=== PATIENT | female | born 1980 | race Caucasian/White ===

== ENCOUNTER 2017-01-24 10:10 | Emergency (ER) | payer MEDICAID ==
[2017-01-24 10:24] VITALS: BP 145/101; BMI 45.4
[2017-01-24] MEDS ORDERED: ZOFRAN INJ 4 MG VIAL IM ONE (10:51)
--- NOTE | 2017-01-24 10:58 | DR.GENAD ---
HPI - PCP Primary Care Physician: JORDIN - Complaint/Symptoms Chief Complaint Doctors Comments: The patient complains of fullness in nasal area like she is drowning in her secretions with sore throat, nausea and vomiting. States she was vomiting yellow secretions today. states her throat was hurting so badily she tried some spray but it only made her throw up again. States she had episode of diarrhea yesterday but none today. She goes to the clinic. States she had a hysterectomy in 2002 and has a history of seizures but she has not had a seizure in weeks. States she has been having fever, cough , dysuria but denies hematuria. Chief Complaint:: PT C/O N/V/D, SORE THROAT AND HEADACHE. PT STATES SHE HAS BEEN VOMITTING SINCE THIS AM. PT STATES HER THROAT STARTED HURTING YESTERDAY. - Nurses notes reviewed Nurses Notes Review: Yes - Source History Provided: Patient - Mode of Arrival Mode of Arrival: Ambulatory - Timing Onset of Chief Complaint: 01/23/17 Came on: Gradually - Duration Duration: Constant How lon Duration: Days - Location Location: sore throat - Severity Severity: Moderate - Modifying Factors Worsens:: nothing Improves:: nothing PMH - PMH Past Medical History: Yes Past Medical History: Headaches, Seizures Past Surgical History: Yes Surgical History: Cholecystectomy, Hysterectomy, Ortho Surgery, Tonsillectomy - Family History History of Family Medical Conditions: Yes Family Medical History: Hypertension - Social History Does any household member use tobacco: No Alcohol Use: None Do you use any recreational Drugs:: No Lives With: Family Lives Where: Home - infectious screening In the last 2 months have you had wt loss of >10#?: NO Have you had fever, night sweats or hemotysis?: No Have you traveled outside the country in the last 6 months?: No Isolation: Standard ROS - Review of Systems Constitutional: No Symptoms Reported, Chills, Fever. negative: See HPI, Diaphoresis, Malaise, Weakness, Irritable, Fatigue, Loss of Appetite, Other Eyes: No Symptoms Reported ENTM: No Symptoms Reported, Nose Discharge, Nose Congestion, Throat Pain. negative: See HPI, Ear Pain, Ear Discharge, Pulling on Ears, Hearing Loss, Nose Pain, Epistaxis, Mouth Pain, Mouth Swelling, Loose Teeth, Drooling, Throat Swelling, Ear Foreign Body Respiratoy: No Symptoms Reported, Non-Productive Cough. negative: See HPI, Productive Cough, Moist Cough, Dry Cough, Hacking Cough, Barking Cough, Brassy Cough, Orthopnea, Short of Breath, Stridor, Wheezing, Hemoptysis, Other Cardiovascular: No Symptoms Reported. negative: See HPI, Chest Pain, Edema, Palpitations, Syncope, Cyanosis, Skin Mottling, Other Gastrointestinal/Abdominal: No Symptoms Reported, Diarrhea, Nausea, Vomiting. negative: See HPI, Abdominal Pain, Constipation, Food Intolerance, Other Genitourinary: No Symptoms Reported, Frequency. negative: See HPI, Discharge, Dysuria, Hematuria, Pain, Bleeding, Other Neurological: No Symptoms Reported Musculoskeletal: No Symptoms Reported Integumentary: No Symptoms Reported Hematologic/Lymphatic: No Symptoms Reported Endocrine: No Symptoms Reported Psychiatric: No Symptoms Reported PE - Vital Signs Vitals: Temperature 98.9 F Pulse Rate 89 Respiratory Rate 20 Blood Pressure [Right Arm] 101/66 Blood Pressure [Left Arm] 107/65 Blood Pressure 145/101 O2 Sat by Pulse Oximetry 99 - General Limitations: No Limitations General Appearance: Alert, In Distress (mild) - Head Head Exam: Normal Inspection, Atraumatic, Normocephalic - Eyes Eye exam: Normal Appearance, PERRL, EOMI. negative: Scleral Icterus, Conjunctival Injection, Nystagmus, Miosis, Mydrasis, Periorbital Swelling, Periorbital Tenderness, Other - ENT ENT Exam: Normal Exam, Normal Oropharynx, Normal External Ear Exam, Mucous Membranes Moist, TM's Normal Bilaterally External Ear Exam: Normal External Inspection TM/Canal Exam: Bilateral Normal Nose Exam: Normal Nose Exam Mouth Exam: Normal Inspection Throat Exam: Normal Inspection - Neck Neck Exam: Normal Inspection, Full ROM, Trachea Midline. negative: Tenderness, Meningismus, Lymphadenopathy, Thyromegaly, Other - Chest Chest Inspection: Normal Inspection, Symmetric Chest Wall Rise - Respiratory Respiratory Exam: Normal Lung Sounds Bilat Respiratory Exam: Bilateral Clear to Auscultation - Cardiovascular Cardiovascular Exam: Regular Rate, Normal Rhythm, Normal Heart Sounds - Abdominal Exam Abdominal Exam: Normal Inspection, Normal Bowel Sounds, Soft Abdominal Tenderness: negative: RUQ, RLQ, LUQ, LLQ, Epigastrium, Suprapubic, Diffuse, Mild, Moderate, Severe, Other - Extremities Extremities Exam: Normal Inspection, Full ROM, Normal Capillary Refill. negative: Tenderness, Edema, Joint Swelling, Calf Tenderness, Other - Back Back Exam: Normal Inspection, Full ROM - Neurologic Neurological Exam: Alert, Oriented X3, CN II-XII Intact, Reflexes Normal. negative: Normal Gait (gait not tested) - Psychiatric Psychiatric Exam: Normal Affect, Normal Mood - Skin Skin Exam: Warm, Dry, Intact, Normal Color ROR - Labs Reviewed Laboratory Results Reviewed?: Yes (all labs and x-ray results reviewed and discussed with patient) Result Diagrams: 01/24/17 11:00 01/24/17 11:00 Laboratory: WBC 11.3 X10^3/uL (3.6-10.0) H 01/24/17 11:00 RBC 4.34 X10^6/uL (3.5-5.4) 01/24/17 11:00 Hgb 12.7 g/dL (12.0-16.0) 01/24/17 11:00 Hct 38.4 % (36.0-47.0) 01/24/17 11:00 MCV 88.4 fL (80.0-100.0) 01/24/17 11:00 MCH 29.2 pg (27.0-34.0) 01/24/17 11:00 MCHC 33.0 g/dL (33.0-35.0) 01/24/17 11:00 RDW 12.6 % (11.6-16.5) 01/24/17 11:00 Plt Count 221 X10^3/uL (150.0-450.0) 01/24/17 11:00 MPV 9.7 fL (7.4-11.0) 01/24/17 11:00 Neut % 85.1 % (42.0-75.0) H 01/24/17 11:00 Lymph % 8.0 % (21.0-51.0) L 01/24/17 11:00 [place] % 6.6 % (0.0-13.0) 01/24/17 11:00 Eos % 0.2 % (0.9-2.9) L 01/24/17 11:00 Baso % 0.1 % (0.2-1.0) L 01/24/17 11:00 Neut # 9.6 x10^3/uL (2.2-4.8) H 01/24/17 11:00 Lymph # 0.9 X10^3/uL (1.3-2.9) L 01/24/17 11:00 [place] # 0.7 x10^3/uL (0.3-0.8) 01/24/17 11:00 Eos # 0.0 x10^3/uL (0.0-0.2) 01/24/17 11:00 Baso # 0.0 X10^3/uL (0.0-0.1) 01/24/17 11:00 Absolute Nucleated RBC 0.0 /100WBC 01/24/17 11:00 Sodium 142 mmol/L (136-145) 01/24/17 11:00 Corrected Sodium TNP 01/24/17 11:00 Potassium 3.9 mmol/L (3.5-5.1) 01/24/17 11:00 Chloride 106 mmol/L (98-107) 01/24/17 11:00 Carbon Dioxide 24.5 mmol/L (21-32) 01/24/17 11:00 BUN 8 mg/dL (7-18) 01/24/17 11:00 Creatinine 0.91 mg/dL (0.55-1.02) 01/24/17 11:00 Est GFR (MDRD) Af Amer > 60 (>60) 01/24/17 11:00 Est GFR (MDRD) Non-Af > 60 (>60) 01/24/17 11:00 Glucose 101 mg/dL (65-99) H 01/24/17 11:00 Calcium 8.2 mg/dL (8.5-10.1) L 01/24/17 11:00 Corrected Calcium TNP 01/24/17 11:00 Total Bilirubin 0.30 mg/dL (0.2-1.0) 01/24/17 11:00 AST 11 Units/L (15-37) L 01/24/17 11:00 ALT 18 Units/L (12-78) 01/24/17 11:00 Alkaline Phosphatase 151 Units/L (46-116) H 01/24/17 11:00 Total Protein 7.6 g/dL (6.4-8.2) 01/24/17 11:00 Albumin 3.6 g/dL (3.4-5.0) 01/24/17 11:00 Globulin 4.0 g/dL (2.5-4.5) 01/24/17 11:00 Albumin/Globulin Ratio 0.9 Ratio (1.1-2.1) L 01/24/17 11:00 Amylase 26 Units/L (25-115) 01/24/17 11:00 Lipase 117 Units/L (73-393) 01/24/17 11:00 Specimen Type Clean catch urine 01/24/17 11:04 Urine Color Yellow (YELLOW) 01/24/17 11:04 Urine Appearance Clear (CLEAR) 01/24/17 11:04 Urine pH 8.0 (5.0 - 8.0) 01/24/17 11:04 Ur Specific [place] 1.015 (1.000-1.030) 01/24/17 11:04 Urine Protein Negative (NEGATIVE) 01/24/17 11:04 Urine Glucose (UA) Negative (NEGATIVE) 01/24/17 11:04 Urine Ketones Negative (NEGATIVE) 01/24/17 11:04 Urine Occult Blood Negative (NEGATIVE) 01/24/17 11:04 Urine Nitrite Negative (NEGATIVE) 01/24/17 11:04 Urine Bilirubin Negative (NEGATIVE) 01/24/17 11:04 Urine Urobilinogen Normal (NORMAL) 01/24/17 11:04 Ur Leukocyte Esterase Negative (NEGATIVE) 01/24/17 11:04 Urine RBC None seen /HPF (NEGATIVE) 01/24/17 11:04 Urine WBC None seen /HPF (NEGATIVE) 01/24/17 11:04 Ur Squamous Epith Cells Few /HPF (NEGATIVE) 01/24/17 11:04 Amorphous Sediment Trace /HPF (NEGATIVE) 01/24/17 11:04 Urine Bacteria Negative /HPF (NEGATIVE) 01/24/17 11:04 Ur Culture Indicated? No/not indicated 01/24/17 11:04 Streptococcus Screen Negative (NEGATIVE) 01/24/17 10:56 - XRAY XRAY Interpreted by: Radiologist (abdominal series: No acute cardiopulmonary disease; no evidence for acut abdominal pathology identified) - Diagnosis Discharge Problem: Pharyngitis Qualifiers: Pharyngitis/tonsillitis etiology: other specified organisms Qualified Code(s): J02.8 - Acute pharyngitis due to other specified organisms Sinusitis, acute Qualifiers: Sinusitis location: maxillary Vomiting Qualifiers: Vomiting type: unspecified - Discharge Plan Disposition: HOME, SELF-CARE Condition: Stable Prescriptions: Amoxicillin & Pot Clavulanate [AUGMENTIN TAB 875 mg/125 mg *] 1 tab PO BID #20 tab Cetirizine HCl [Zyrtec Tab 10 mg] 10 mg PO DAILY #30 tab Fluticasone Nasal [place] [FLONASE NASAL SPRAY *] 2 sprays ENOSTRIL DAILY #1 each Ibuprofen [Motrin Tab 800 mg] 800 mg PO BID PRN #60 tab PRN Reason: Pain/Inflammation - Follow ups/Referrals Follow ups/Referrals: Ana María Liao [Primary Care Provider] - 3 days - Instructions Instructions: Pharyngitis, Salt Water Gargle, Sinusitis, Adult, Nausea and Vomiting, Adult
[2017-01-24] MEDS ORDERED: ZOFRAN INJ 4 MG VIAL ONE (11:14)
[2017-01-24 11:26] LABS: BASOPHILS % (AUTO) 0.1 % (0.2-1.0); EOSINOPHILS % (AUTO) 0.2 % (0.9-2.9); HEMATOCRIT 38.4 % (36.0-47.0); HEMOGLOBIN 12.7 g/dL (12.0-16.0); LYMPHOCYTES # (AUTO) 0.9 X10^3/uL (1.3-2.9); MEAN CORPUSCULAR HEMOGLOBIN 29.2 pg (27.0-34.0); MEAN CORPUSCULAR VOLUME 88.4 fL (80.0-100.0); MEAN PLATELET VOLUME 9.7 fL (7.4-11.0); MONOCYTES # (AUTO) 0.7 x10^3/uL (0.3-0.8); MONOCYTES % (AUTO) 6.6 % (0.0-13.0); NEUTROPHILS # (AUTO) 9.6 x10^3/uL (2.2-4.8); NEUTROPHILS % (AUTO) 85.1 % (42.0-75.0); PLATELET COUNT 221 X10^3/uL (150.0-450.0); RED BLOOD COUNT 4.34 X10^6/uL (3.5-5.4); RED CELL DISTRIBUTION WIDTH 12.6 % (11.6-16.5); WHITE BLOOD COUNT 11.3 X10^3/uL (3.6-10.0)
[2017-01-24 11:28] LABS: ALANINE AMINOTRANSFERASE 18 Units/L (12-78); ALBUMIN 3.6 g/dL (3.4-5.0); ALKALINE PHOSPHATASE 151 Units/L (46-116); AMYLASE 26 Units/L (25-115); ASPARTATE AMINO TRANSFERASE 11 Units/L (15-37); BLOOD UREA NITROGEN 8 mg/dL (7-18); CALCIUM 8.2 mg/dL (8.5-10.1); CARBON DIOXIDE 24.5 mmol/L (21-32); CHLORIDE 106 mmol/L (98-107); CREATININE 0.91 mg/dL (0.55-1.02); GLUCOSE 101 mg/dL (65-99); LIPASE 117 Units/L (73-393); SODIUM 142 mmol/L (136-145); TOTAL PROTEIN 7.6 g/dL (6.4-8.2); eGFR BLACK RACES > 60 (>60); eGFR NON BLACK RACES > 60 (>60)
[2017-01-24 11:29] LABS: BILIRUBIN,URINE NEGATIVE (NEGATIVE); BLOOD/HEMOGLOBIN,URINE NEGATIVE (NEGATIVE); GLUCOSE, URINE NEGATIVE (NEGATIVE); KETONES,URINE NEGATIVE (NEGATIVE); LEUKOCYTE ESTERASE ,URINE NEGATIVE (NEGATIVE); NITRITES,URINE NEGATIVE (NEGATIVE); PROTEIN,URINE NEGATIVE (NEGATIVE); UROBILINOGEN,URINE NORMAL (NORMAL)
[2017-01-24 11:36] LABS: AMORPHOUS SEDIMENT,UR TRACE /HPF (NEGATIVE); APPEARANCE,URINE CLEAR (CLEAR); BACTERIA,URINE NEGATIVE /HPF (NEGATIVE); COLOR,URINE YELLOW (YELLOW); RBC,URINE NONE SEEN /HPF (NEGATIVE); SQUAMOUS EPITHELIAL CELL,UR FEW /HPF (NEGATIVE)
--- NOTE | 2017-01-24 12:05 | RAD ---
HISTORY: Nausea and vomiting and diarrhea abdominal pain for 1 day Study: Acute abdominal series Comparison: April 2014 Findings: The trachea is midline. The cardiac silhouette is unremarkable. The lungs are clear without focal infiltrate or effusion. The bony thorax is unremarkable. Flat plate and upright evaluation of the abdomen demonstrates a normal bowel gas pattern. No pathol ogical soft tissue mass or calcification can be observed. The bony structures are grossly intact. T here are cholecystectomy clips. IMPRESSION: 1. No acute cardiopulmonary disease. 2. No evidence for acute abdominal pathology identified. Reported By:
[2017-01-24] MEDS ORDERED: ROCEPHIN VIAL 1 GM IM ONE (12:19)
[2017-01-24] MEDS ORDERED: TYLENOL #3 TAB (W/CODEINE) PO STA (12:19)
[2017-01-24] MEDS ORDERED: BENADRYL INJ 50 MG VIAL IM ONE (12:19)
[2017-01-24] MEDS ORDERED: ROCEPHIN VIAL 1 GM ONE (12:23)
[2017-01-24] MEDS ORDERED: TYLENOL #3 TAB (W/CODEINE) PO ONE (12:23)
[2017-01-24] MEDS ORDERED: BENADRYL INJ 50 MG VIAL ONE (12:23)
== END 2017-01-24 12:31 | disposition home or self-care (01) ==
LOC: ER 10:31
DX: J02.8 Acute pharyngitis due to other specified organisms (principal); J01.80 Other acute sinusitis; R11.10 Vomiting, unspecified
CPT/HCPCS: 36415; 74022; 80053; 81001; 82150; 83690; 85025; 87070; 87880; 96372; 99283; J0696; J1200; J2405

== ENCOUNTER 2017-04-05 23:36 | Emergency (ER) | payer MEDICAID ==
[2017-04-05 23:51] VITALS: BP 111/84; BMI 42.7
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
[2017-04-06] MEDS ORDERED: TUSSIONEX PENNKINETIC SUSP PO ONE (00:10)
[2017-04-06] MEDS ORDERED: TUSSIONEX PENNKINETIC SUSP ONE (00:17)
--- NOTE | 2017-04-06 01:14 | RAD ---
EXAM: Chest X-ray INDICATION: Chest pain COMPARISION: Prior exam from January 24, 2017 TECHNIQUE: AP, single view FINDINGS: The lungs are clear in the lung volumes are within normal limits. No pleural effusion or pneumothora x. The cardiac silhouette and mediastinum are normal. The regional skeleton is intact. IMPRESSION: Normal Chest X-Ray Reported By:
[2017-04-06] MEDS ORDERED: AMOXIL CAP 500 MG PO ONE (01:29)
== END 2017-04-06 01:49 | disposition home or self-care (01) ==
LOC: ER 23:36
DX: J20.9 Acute bronchitis, unspecified (principal); R07.89 Other chest pain
CPT/HCPCS: 71010; 99282; 99283

== ENCOUNTER → 2017-04-10 | Outpatient (CLI) | payer MEDICAID ==
[2017-04-05 23:51] VITALS: BP 111/84
--- NOTE | 2017-04-10 14:53 | US ---
HISTORY: Thyroid nodule. Study: Thyroid ultrasound. Comparison: MR cervical spine dated December 18, 2016. Technique: Multiple sanchez scale images of the thyroid were obtained. Findings: The thyroid lobes demonstrate heterogeneous echotexture with multiple thyroid nodules. 6 x 4 x 6 mm right mid thyroid lobe nodule without internal color flow or suspicious microcalcifications. Predomi nantly cystic 1.3 x 0.9 x 1.3 cm left inferior thyroid lobe nodule. Adjacent to this nodule there is a 6 x 4 x 7 mm nodule. These do not demonstrate internal color flow or suspicious microcalcificatio ns. The right lobe of the thyroid measures 4.3 x 2.0 x 2.4 cm. The left lobe of the thyroid measures 4.8 x 2.0 x 2.4 cm. The thyroid isthmus enlarged to 3.4 mm and demonstrates heterogeneous echotext ure. IMPRESSION: Multinodular goiter as above. None of these meet criteria for fine needle aspiration. Reji martin, recommend followup ultrasound in 12 months to document stability. Reported By:
== END ==
LOC: RAD 10:19
PROVIDERS: ATTEND Nurse Practitioner Family
DX: E04.1 Nontoxic single thyroid nodule (principal)
CPT/HCPCS: 76536

== ENCOUNTER → 2017-04-15 | Outpatient (CLI) | payer MEDICAID ==
[2017-04-05 23:51] VITALS: BP 111/84
[2017-04-15 17:10] LABS: BASOPHILS % (AUTO) 0.6 % (0.2-1.0); EOSINOPHILS # (AUTO) 0.1 x10^3/uL (0.0-0.2); EOSINOPHILS % (AUTO) 1.3 % (0.9-2.9); HEMATOCRIT 39.5 % (36.0-47.0); HEMOGLOBIN 13.2 g/dL (12.0-16.0); LYMPHOCYTES % (AUTO) 27.3 % (21.0-51.0); MEAN CORPUSCULAR HEMOGLOBIN 29.4 pg (27.0-34.0); MEAN CORPUSCULAR HGB CONC 33.3 g/dL (33.0-35.0); MEAN CORPUSCULAR VOLUME 88.1 fL (80.0-100.0); MEAN PLATELET VOLUME 10.1 fL (7.4-11.0); MONOCYTES # (AUTO) 0.6 x10^3/uL (0.3-0.8); MONOCYTES % (AUTO) 8.9 % (0.0-13.0); NEUTROPHILS # (AUTO) 4.4 x10^3/uL (2.2-4.8); NEUTROPHILS % (AUTO) 61.9 % (42.0-75.0); PLATELET COUNT 259 X10^3/uL (150.0-450.0); RED BLOOD COUNT 4.48 X10^6/uL (3.5-5.4); WHITE BLOOD COUNT 7.2 X10^3/uL (3.6-10.0)
[2017-04-15 17:25] LABS: ALANINE AMINOTRANSFERASE 34 Units/L (12-78); ALBUMIN 3.6 g/dL (3.4-5.0); ALKALINE PHOSPHATASE 161 Units/L (46-116); ASPARTATE AMINO TRANSFERASE 31 Units/L (15-37); BLOOD UREA NITROGEN 14 mg/dL (7-18); CALCIUM 8.8 mg/dL (8.5-10.1); CARBON DIOXIDE 22.4 mmol/L (21-32); CHLORIDE 111 mmol/L (98-107); CREATININE 0.79 mg/dL (0.55-1.02); GLUCOSE 91 mg/dL (65-99); SODIUM 145 mmol/L (136-145); T4 (THYROXINE) 7.2 ug/dL (4.7-13.3); TOTAL PROTEIN 7.9 g/dL (6.4-8.2); TSH (3RD GENERATION) 1.565 uIU/mL (0.358-3.74); eGFR BLACK RACES > 60 (>60); eGFR NON BLACK RACES > 60 (>60)
== END ==
LOC: LAB 16:19
PROVIDERS: ATTEND Nurse Practitioner Family
DX: R53.83 Other fatigue (principal); E04.1 Nontoxic single thyroid nodule; R05 Cough
CPT/HCPCS: 36415; 80053; 84436; 84443; 84481; 85025

== ENCOUNTER 2017-04-16 19:41 | Emergency (ER) | payer MEDICAID ==
[2017-04-16 19:47] VITALS: BP 135/93; BMI 45.7
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
[2017-04-16] MEDS ORDERED: DEMEROL INJ IM ONE (21:58)
[2017-04-16] MEDS ORDERED: ZOFRAN INJ 4 MG VIAL IM ONE (21:58)
[2017-04-16] MEDS ORDERED: DEMEROL INJ ONE (22:05)
[2017-04-16] MEDS ORDERED: ZOFRAN INJ 4 MG VIAL ONE (22:05)
== END 2017-04-16 22:27 | disposition home or self-care (01) ==
LOC: ER 19:58
DX: S16.1XXA Strain of muscle, fascia and tendon at neck level, initial encounter (principal); S09.90XA Unspecified injury of head, initial encounter; S00.83XA Contusion of other part of head, initial encounter; S20.212A Contusion of left front wall of thorax, initial encounter; S00.03XA Contusion of scalp, initial encounter; M79.89 Other specified soft tissue disorders; R51 Headache; Y04.0XXA Assault by unarmed brawl or fight, initial encounter; Y92.148 Other place in prison as the place of occurrence of the external cause
CPT/HCPCS: 70150; 70450; 71020; 72050; 96372; 99283; J2175; J2405

== ENCOUNTER → 2017-04-23 | Outpatient (CLI) | payer MEDICAID ==
[2017-04-05 23:51] VITALS: BP 111/84
--- NOTE | 2017-04-23 15:29 | MRI ---
HISTORY: Low back pain. Study: MRI lumbar spine without contrast. Comparison: Lumbar spine series dated September 11, 2016. Technique: Multiplanar multi-sequence MRI of the lumbar spine was obtained. Sagittal T1, sagittal T 2, and stir weighted images, axial T1, and axial T2 images were obtained. Findings: The lumbar spine demonstrates normal alignment with the expected signal characteristics of the bone marrow. No acute fracture or listhesis. The conus of the cord terminates normally. Disc desiccation at L5-S1 with associated mild disc height loss. Visualized soft tissues appear normal. L1 -- L2: No significant disc bulge, neural foraminal narrowing, or spinal canal stenosis. L2 -- L3: No significant disc bulge, neural foraminal narrowing, or spinal canal stenosis. L3 -- L4: No significant disc bulge, neural foraminal narrowing, or spinal canal stenosis. L4 -- L5: No significant disc bulge, neural foraminal narrowing, or spinal canal stenosis. L5 -- S1: Broad-based disc bulge that extends into the lateral recesses causing mild bilateral neura l foraminal narrowing. No significant spinal canal stenosis. IMPRESSION: Broad-based disc bulge at L5-S1 causing mild bilateral neural foraminal narrowing. No si gnificant spinal canal stenosis. Reported By:
== END ==
LOC: RAD 14:21
PROVIDERS: ATTEND Nurse Practitioner Family
DX: G40.802 Other epilepsy, not intractable, without status epilepticus (principal); M51.27 Other intervertebral disc displacement, lumbosacral region
CPT/HCPCS: 72148; 95819

== ENCOUNTER 2017-06-02 22:24 | Emergency (ER) | payer MEDICAID ==
[2017-06-02 22:30] VITALS: BP 133/96; BMI 45.7
--- NOTE | 2017-06-02 23:20 | DR.GENAD ---
HPI - PCP Primary Care Physician: [facility] - Complaint/Symptoms Chief Complaint:: "BOTH OF MY LEGS HURT FROM KNEES DOWN, STARTED YESTERDAY GOT WORSE TODAY WHEN I WAS CLEANING. THEY FEEL LIKE THEY ARE GOING TO EXPLODE. THEY ARE SWELLING TOO." Self Treatment fo Chief Complaint: TYLENOL 3 - Source History Provided: Patient - Mode of Arrival Mode of Arrival: Ambulatory - Timing Onset of Chief Complaint: 06/01/17 PMH - PMH Past Medical History: Yes Past Medical History: Headaches, Seizures Past Surgical History: Yes Surgical History: Cholecystectomy, Hysterectomy, Ortho Surgery, Tonsillectomy - Family History History of Family Medical Conditions: Yes Family Medical History: Hypertension - Social History Does patient currently use any type of tobacco product: No Have you used tobacco products in the last 12 months: No Type of Tobacco Use: None Does any household member use tobacco: No Alcohol Use: None Do you use any recreational Drugs:: No Lives Where: Home - infectious screening Have you traveled outside the country in the last 6 months?: No Isolation: Standard ROS - Review of Systems Constitutional: Diaphoresis ENTM: No Symptoms Reported Respiratoy: No Symptoms Reported Cardiovascular: No Symptoms Reported Gastrointestinal/Abdominal: No Symptoms Reported Genitourinary: No Symptoms Reported Neurological: No Symptoms Reported Musculoskeletal: No Symptoms Reported Integumentary: No Symptoms Reported Hematologic/Lymphatic: No Symptoms Reported Endocrine: No Symptoms Reported Psychiatric: No Symptoms Reported All Other Systems: Reviewed and Negative PE - Vital Signs Vitals: Temperature 97.6 F Pulse Rate 80 Respiratory Rate 18 Blood Pressure [Right Arm] 101/66 Blood Pressure [Left Arm] 107/65 Blood Pressure 133/96 O2 Sat by Pulse Oximetry 96 - General Limitations: No Limitations General Appearance: Alert - Head Head Exam: Normal Inspection, Atraumatic - Eyes Eye exam: Normal Appearance, PERRL, EOMI - ENT ENT Exam: Normal Exam External Ear Exam: Normal External Inspection TM/Canal Exam: Bilateral Normal Nose Exam: Normal Nose Exam Mouth Exam: Normal Inspection Throat Exam: Normal Inspection - Neck Neck Exam: Normal Inspection, Full ROM - Chest Chest Inspection: Normal Inspection - Respiratory Respiratory Exam: Normal Lung Sounds Bilat Respiratory Exam: Bilateral Clear to Auscultation - Cardiovascular Cardiovascular Exam: Regular Rate, Normal Rhythm - Abdominal Exam Abdominal Exam: Normal Inspection, Normal Bowel Sounds Abdominal Tenderness: negative: RUQ, RLQ, LUQ, LLQ, Epigastrium, Suprapubic, Diffuse, Mild, Moderate, Severe, Other - Extremities Extremities Exam: Normal Inspection, Tenderness (bilateral leg pain (lower)) - Back Back Exam: Normal Inspection - Neurologic Neurological Exam: Alert, Oriented X3, CN II-XII Intact - Psychiatric Psychiatric Exam: Normal Affect - Skin Skin Exam: Warm, Dry, Intact Course - Reevaluation 1st: Unchanged ROR - Labs Reviewed Result Diagrams: 06/02/17 23:18 06/02/17 23:18 Laboratory: WBC 6.5 X10^3/uL (3.6-10.0) 06/02/17 23:18 RBC 4.17 X10^6/uL (3.5-5.4) 06/02/17 23:18 Hgb 12.5 g/dL (12.0-16.0) 06/02/17 23:18 Hct 37.2 % (36.0-47.0) 06/02/17 23:18 MCV 89.2 fL (80.0-100.0) 06/02/17 23:18 MCH 29.9 pg (27.0-34.0) 06/02/17 23:18 MCHC 33.5 g/dL (33.0-35.0) 06/02/17 23:18 RDW 12.9 % (11.6-16.5) 06/02/17 23:18 Plt Count 223 X10^3/uL (150.0-450.0) 06/02/17 23:18 MPV 10.4 fL (7.4-11.0) 06/02/17 23:18 Neut % 63.6 % (42.0-75.0) 06/02/17 23:18 Lymph % 27.4 % (21.0-51.0) 06/02/17 23:18 [place] % 8.2 % (0.0-13.0) 06/02/17 23:18 Eos % 0.3 % (0.9-2.9) L 06/02/17 23:18 Baso % 0.5 % (0.2-1.0) 06/02/17 23:18 Neut # 4.2 x10^3/uL (2.2-4.8) 06/02/17 23:18 Lymph # 1.8 X10^3/uL (1.3-2.9) 06/02/17 23:18 [place] # 0.5 x10^3/uL (0.3-0.8) 06/02/17 23:18 Eos # 0.0 x10^3/uL (0.0-0.2) 06/02/17 23:18 Baso # 0.0 X10^3/uL (0.0-0.1) 06/02/17 23:18 Absolute Nucleated RBC 0.1 /100WBC 06/02/17 23:18 Sodium 141 mmol/L (136-145) 06/02/17 23:18 Corrected Sodium TNP 06/02/17 23:18 Potassium 3.7 mmol/L (3.5-5.1) 06/02/17 23:18 Chloride 107 mmol/L (98-107) 06/02/17 23:18 Carbon Dioxide 24.8 mmol/L (21-32) 06/02/17 23:18 BUN 11 mg/dL (7-18) 06/02/17 23:18 Creatinine 0.94 mg/dL (0.55-1.02) 06/02/17 23:18 Est GFR (MDRD) Af Amer > 60 (>60) 06/02/17 23:18 Est GFR (MDRD) Non-Af > 60 (>60) 06/02/17 23:18 Glucose 83 mg/dL (65-99) 06/02/17 23:18 Calcium 8.2 mg/dL (8.5-10.1) L 06/02/17 23:18 - Diagnosis Discharge Problem: Leg pain, anterior Qualifiers: Laterality: left Qualified Code(s): M79.605 - Pain in left leg - Discharge Plan Condition: Stable - Follow ups/Referrals Follow ups/Referrals: NFD,None [Primary Care Provider] - 3 days - Instructions
[2017-06-02 23:46] LABS: BASOPHILS % (AUTO) 0.5 % (0.2-1.0); EOSINOPHILS % (AUTO) 0.3 % (0.9-2.9); HEMATOCRIT 37.2 % (36.0-47.0); HEMOGLOBIN 12.5 g/dL (12.0-16.0); LYMPHOCYTES # (AUTO) 1.8 X10^3/uL (1.3-2.9); LYMPHOCYTES % (AUTO) 27.4 % (21.0-51.0); MEAN CORPUSCULAR HEMOGLOBIN 29.9 pg (27.0-34.0); MEAN CORPUSCULAR HGB CONC 33.5 g/dL (33.0-35.0); MEAN CORPUSCULAR VOLUME 89.2 fL (80.0-100.0); MEAN PLATELET VOLUME 10.4 fL (7.4-11.0); MONOCYTES # (AUTO) 0.5 x10^3/uL (0.3-0.8); MONOCYTES % (AUTO) 8.2 % (0.0-13.0); NEUTROPHILS # (AUTO) 4.2 x10^3/uL (2.2-4.8); NEUTROPHILS % (AUTO) 63.6 % (42.0-75.0); PLATELET COUNT 223 X10^3/uL (150.0-450.0); RED BLOOD COUNT 4.17 X10^6/uL (3.5-5.4); RED CELL DISTRIBUTION WIDTH 12.9 % (11.6-16.5); WHITE BLOOD COUNT 6.5 X10^3/uL (3.6-10.0)
[2017-06-02 23:50] LABS: BLOOD UREA NITROGEN 11 mg/dL (7-18); CALCIUM 8.2 mg/dL (8.5-10.1); CARBON DIOXIDE 24.8 mmol/L (21-32); CHLORIDE 107 mmol/L (98-107); CREATININE 0.94 mg/dL (0.55-1.02); GLUCOSE 83 mg/dL (65-99); SODIUM 141 mmol/L (136-145); eGFR BLACK RACES > 60 (>60); eGFR NON BLACK RACES > 60 (>60)
== END 2017-06-03 00:55 | disposition home or self-care (01) ==
LOC: ER 22:37
DX: M79.605 Pain in left leg (principal)
CPT/HCPCS: 36415; 80048; 85025; 99282

== ENCOUNTER → 2017-08-06 | Outpatient (CLI) | payer MEDICAID ==
[2017-08-06 15:35] LABS: BASOPHILS % (AUTO) 0.7 % (0.2-1.0); EOSINOPHILS % (AUTO) 0.3 % (0.9-2.9); HEMATOCRIT 40.2 % (36.0-47.0); HEMOGLOBIN 13.5 g/dL (12.0-16.0); LYMPHOCYTES # (AUTO) 1.6 X10^3/uL (1.3-2.9); LYMPHOCYTES % (AUTO) 32.4 % (21.0-51.0); MEAN CORPUSCULAR HEMOGLOBIN 29.2 pg (27.0-34.0); MEAN CORPUSCULAR HGB CONC 33.6 g/dL (33.0-35.0); MEAN CORPUSCULAR VOLUME 86.9 fL (80.0-100.0); MEAN PLATELET VOLUME 10.2 fL (7.4-11.0); MONOCYTES # (AUTO) 0.4 x10^3/uL (0.3-0.8); NEUTROPHILS # (AUTO) 2.9 x10^3/uL (2.2-4.8); NEUTROPHILS % (AUTO) 58.6 % (42.0-75.0); PLATELET COUNT 232 X10^3/uL (150.0-450.0); RED BLOOD COUNT 4.62 X10^6/uL (3.5-5.4); RED CELL DISTRIBUTION WIDTH 13.3 % (11.6-16.5); WHITE BLOOD COUNT 4.9 X10^3/uL (3.6-10.0)
[2017-08-06 15:56] LABS: CHOL/HDL RATIO 2.9 (0.0-5.0); TSH (3RD GENERATION) 0.886 uIU/mL (0.358-3.74)
== END ==
LOC: LAB 15:08
PROVIDERS: ATTEND Nurse Practitioner Family
DX: E04.1 Nontoxic single thyroid nodule (principal); E78.4 Other hyperlipidemia; G40.909 Epilepsy, unspecified, not intractable, without status epilepticus
CPT/HCPCS: 36415; 80061; 84443; 85025

== ENCOUNTER 2017-08-09 07:15 | Emergency (ER) | payer MEDICAID ==
[2017-08-09 07:18] VITALS: BP 125/93; BMI 46.0
[2017-08-09] MEDS ORDERED: DEMEROL INJ IM ONE (07:45)
[2017-08-09] MEDS ORDERED: DECADRON INJ IM ONE (07:46)
[2017-08-09] MEDS ORDERED: PHENERGAN INJ 25 MG IM ONE (07:46)
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
[2017-08-09] MEDS ORDERED: DEMEROL INJ ONE (08:13)
[2017-08-09] MEDS ORDERED: DECADRON INJ ONE (08:13)
[2017-08-09] MEDS ORDERED: PHENERGAN INJ 25 MG ONE (08:13)
--- NOTE | 2017-08-09 08:31 | RAD ---
HISTORY: Right arm pain. Study: Right humerus two views Comparison: None. Findings: No acute cortical disruption or dislocation can be identified. The humeral head appears unremarkable . No significant soft tissue swelling or injury can be seen. IMPRESSION: 1. Negative exam. Reported By:
--- NOTE | 2017-08-09 08:32 | RAD ---
HISTORY: In right arm pain. Study: Right forearm two views Comparison: January 29, 2012. Findings: No evidence for acute cortical disruption or dislocation can be identified. No significant soft tissu e abnormalities appreciated. The carpal bones appear well aligned. The radius and ulna are unremarka ble. The elbow is normal in appearance. No significant joint effusion is identified. IMPRESSION: 1. Negative exam. Reported By:
--- NOTE | 2017-08-09 14:51 | RAD ---
HISTORY: Elbow pain, no trauma Study: Three views right elbow Comparison: 09/01/2011 Findings: Normal alignment. No acute fracture or dislocation. The soft tissues are unremarkable. There are mil d degenerative changes at the elbow joint. No joint effusion is seen. IMPRESSION: 1. No acute osseous abnormality. Reported By:
== END 2017-08-09 08:51 | disposition home or self-care (01) ==
LOC: SUPCPDRO 07:15 → ER 07:22
DX: M77.9 Enthesopathy, unspecified (principal); M79.601 Pain in right arm; M25.521 Pain in right elbow
CPT/HCPCS: 73060; 73070; 73090; 96372; 99282; 99283; J1100; J2175; J2550

== ENCOUNTER 2017-09-24 02:15 | Emergency (ER) | payer MEDICAID ==
[2017-09-24 02:28] VITALS: BMI 47.7
--- NOTE | 2017-09-24 02:41 | DR.GENAD ---
HPI - HPI Comment HPI Comment: PATIENT IS MORE ALERT NOW AND BELIEVE SHE HAD SEIZURE. THE MUSCLE DISCOMFORT SHE EXPERIENCE AFTER SEIZURE IS FELT CURRENTLY.NO FEVER. NO CHEST PAIN. - Complaint/Symptoms Chief Complaint Doctors Comments: PATIENT SAID SHE HAD SEIZURE. FAMILY CALLED EMS. CONCERN SHE MAY HAVE TAKING HER MORE OF HER MEDICATION. Chief Complaint:: PT STATES THAT HER FAMILY CALLED 911 BECAUSE "THEY THOUGHT I TOOK TOO MUCH MEDICINE" PT STATES THAT SHE DID NOT TAKE TOO MUCH MEDICINE BUT THINKS SHE MAY HAVE HAD A SEIZURE TONIGHT. Self Treatment fo Chief Complaint: PT IS A&O X4. IS HAVING SLURRED SPEECH AND HER EYES ARE TRYING TO ROLL BACK IN HER HEAD. PERRLA BUT SLUGGISH. - Nurses notes reviewed Nurses Notes Review: Yes - Source History Provided: Patient - Mode of Arrival Mode of Arrival: Stretcher - Timing Onset of Chief Complaint: 09/24/17 Came on: Suddenly - Duration Duration: Since Onset Duration: Minutes - Severity Severity: Moderate PMH - PMH Past Medical History: Yes Past Medical History: GERD, Headaches, Seizures Past Surgical History: Yes Surgical History: Cholecystectomy, Hysterectomy, Ortho Surgery, Tonsillectomy - Family History History of Family Medical Conditions: Yes Family Medical History: Diabetes Mellitus, Hypertension - Social History Do you use any recreational Drugs:: No - infectious screening Have you traveled outside the country in the last 6 months?: No ROS - Review of Systems Constitutional: No Symptoms Reported, Weakness, Fatigue. negative: Chills, Fever Eyes: negative: Eye Pain, Discharge ENTM: negative: Ear Pain, Nose Discharge, Nose Congestion, Throat Pain Respiratoy: Short of Breath (ON EXERTION). negative: Wheezing, Hemoptysis Cardiovascular: Edema (TRACE). negative: Chest Pain Gastrointestinal/Abdominal: negative: Abdominal Pain, Nausea, Vomiting Genitourinary: negative: Dysuria, Frequency, Hematuria Neurological: Headache, Weakness, Dizziness Musculoskeletal: Muscle Pain Integumentary: No Symptoms Reported, See HPI, Change in Color Hematologic/Lymphatic: No Symptoms Reported Endocrine: No Symptoms Reported All Other Systems: Reviewed and Negative PE - Vital Signs Vitals: Temperature 98.8 F Pulse Rate [Right Radial] 90 Pulse Rate 97 Respiratory Rate 18 Blood Pressure [Right Arm] 140/72 Blood Pressure [Left Arm] 107/65 Blood Pressure 139/69 O2 Sat by Pulse Oximetry 100 - General Limitations: No Limitations General Appearance: Alert - Head Head Exam: Normal Inspection - Eyes Eye exam: Normal Appearance - ENT ENT Exam: Normal External Ear Exam External Ear Exam: Normal External Inspection TM/Canal Exam: Bilateral Normal Nose Exam: Normal Nose Exam Mouth Exam: Normal Inspection Throat Exam: Normal Inspection - Neck Neck Exam: Trachea Midline - Chest Chest Inspection: Symmetric Chest Wall Rise - Respiratory Respiratory Exam: Normal Lung Sounds Bilat Respiratory Exam: Bilateral Rhonchi, Upper Rhonchi, Lower Rhonchi - Cardiovascular Cardiovascular Exam: Regular Rate, Normal Rhythm - Abdominal Exam Abdominal Exam: Normal Bowel Sounds, Soft. negative: Tenderness - Extremities Extremities Exam: Edema - Back Back Exam: Normal Inspection - Neurologic Neurological Exam: Alert, Oriented X3 - Psychiatric Psychiatric Exam: Normal Affect, Normal Mood - Skin Skin Exam: Normal Color MDM - Additional Information Additional Information Obtained From: Family - Differential Diagnosis Differential Diagnosis: SEIZURE Course - Treatment Treatment: PATIENT GRADUALLY BECAME MORE ALERT IN ED.FULLY ALERT AT TIME OF DISCHARGE. - Reevaluation 1st: Improved - Education/Counseling Education/Counseling: Patient, Family, Education, Counseling Educated On: Treatment, Diagnosis, Needs for Follow Up ROR - Labs Reviewed Laboratory Results Reviewed?: Yes Result Diagrams: 09/24/17 02:48 09/24/17 02:48 Laboratory: WBC 7.4 X10^3/uL (3.6-10.0) 09/24/17 02:48 RBC 4.60 X10^6/uL (3.5-5.4) 09/24/17 02:48 Hgb 13.6 g/dL (12.0-16.0) 09/24/17 02:48 Hct 41.0 % (36.0-47.0) 09/24/17 02:48 MCV 89.0 fL (80.0-100.0) 09/24/17 02:48 MCH 29.6 pg (27.0-34.0) 09/24/17 02:48 MCHC 33.3 g/dL (33.0-35.0) 09/24/17 02:48 RDW 13.4 % (11.6-16.5) 09/24/17 02:48 Plt Count 227 X10^3/uL (150.0-450.0) 09/24/17 02:48 MPV 10.5 fL (7.4-11.0) 09/24/17 02:48 Neut % 70.0 % (42.0-75.0) 09/24/17 02:48 Lymph % 21.7 % (21.0-51.0) 09/24/17 02:48 [place] % 7.5 % (0.0-13.0) 09/24/17 02:48 Eos % 0.3 % (0.9-2.9) L 09/24/17 02:48 Baso % 0.5 % (0.2-1.0) 09/24/17 02:48 Neut # 5.2 x10^3/uL (2.2-4.8) H 09/24/17 02:48 Lymph # 1.6 X10^3/uL (1.3-2.9) 09/24/17 02:48 [place] # 0.6 x10^3/uL (0.3-0.8) 09/24/17 02:48 Eos # 0.0 x10^3/uL (0.0-0.2) 09/24/17 02:48 Baso # 0.0 X10^3/uL (0.0-0.1) 09/24/17 02:48 Absolute Nucleated RBC 0.0 /100WBC 09/24/17 02:48 Sodium 139 mmol/L (136-145) 09/24/17 02:48 Corrected Sodium TNP 09/24/17 02:48 Potassium 3.7 mmol/L (3.5-5.1) 09/24/17 02:48 Chloride 106 mmol/L (98-107) 09/24/17 02:48 Carbon Dioxide 22.1 mmol/L (21-32) 09/24/17 02:48 BUN 16 mg/dL (7-18) 09/24/17 02:48 Creatinine 0.81 mg/dL (0.55-1.02) 09/24/17 02:48 Est GFR (MDRD) Af Amer > 60 (>60) 09/24/17 02:48 Est GFR (MDRD) Non-Af > 60 (>60) 09/24/17 02:48 Glucose 106 mg/dL (65-99) H 09/24/17 02:48 Calcium 8.5 mg/dL (8.5-10.1) 09/24/17 02:48 Corrected Calcium TNP 09/24/17 02:48 Total Bilirubin 0.20 mg/dL (0.2-1.0) 09/24/17 02:48 AST 11 Units/L (15-37) L 09/24/17 02:48 ALT 15 Units/L (12-78) 09/24/17 02:48 Alkaline Phosphatase 160 Units/L (46-116) H 09/24/17 02:48 Total Protein 8.0 g/dL (6.4-8.2) 09/24/17 02:48 Albumin 4.1 g/dL (3.4-5.0) 09/24/17 02:48 Globulin 3.9 g/dL (2.5-4.5) 09/24/17 02:48 Albumin/Globulin Ratio 1.1 Ratio (1.1-2.1) 09/24/17 02:48 - Diagnosis Discharge Problem: Seizure - Discharge Plan Disposition: 01 HOME, SELF-CARE Condition: Stable - Follow ups/Referrals Follow ups/Referrals: DANIELLE FIGUEROA [STAFF PHYSICIAN] - 09/24/17 NARENDRA CARROLL [Primary Care Provider] - 09/24/17 - Instructions Instructions: Seizure, Adult, [id number] Additional Instructions: RETURN TO ED IF WORSE. SEIZURE PRECAUTIONS.
[2017-09-24 03:03] LABS: BASOPHILS % (AUTO) 0.5 % (0.2-1.0); EOSINOPHILS % (AUTO) 0.3 % (0.9-2.9); HEMOGLOBIN 13.6 g/dL (12.0-16.0); LYMPHOCYTES # (AUTO) 1.6 X10^3/uL (1.3-2.9); LYMPHOCYTES % (AUTO) 21.7 % (21.0-51.0); MEAN CORPUSCULAR HEMOGLOBIN 29.6 pg (27.0-34.0); MEAN CORPUSCULAR HGB CONC 33.3 g/dL (33.0-35.0); MEAN PLATELET VOLUME 10.5 fL (7.4-11.0); MONOCYTES # (AUTO) 0.6 x10^3/uL (0.3-0.8); MONOCYTES % (AUTO) 7.5 % (0.0-13.0); NEUTROPHILS # (AUTO) 5.2 x10^3/uL (2.2-4.8); PLATELET COUNT 227 X10^3/uL (150.0-450.0); RED CELL DISTRIBUTION WIDTH 13.4 % (11.6-16.5); WHITE BLOOD COUNT 7.4 X10^3/uL (3.6-10.0)
[2017-09-24 03:12] LABS: ALANINE AMINOTRANSFERASE 15 Units/L (12-78); ALBUMIN 4.1 g/dL (3.4-5.0); ALKALINE PHOSPHATASE 160 Units/L (46-116); ASPARTATE AMINO TRANSFERASE 11 Units/L (15-37); BLOOD UREA NITROGEN 16 mg/dL (7-18); CALCIUM 8.5 mg/dL (8.5-10.1); CARBON DIOXIDE 22.1 mmol/L (21-32); CHLORIDE 106 mmol/L (98-107); CREATININE 0.81 mg/dL (0.55-1.02); SODIUM 139 mmol/L (136-145); eGFR BLACK RACES > 60 (>60); eGFR NON BLACK RACES > 60 (>60)
[2017-09-24 03:54] VITALS: BP 140/72
== END 2017-09-24 03:50 | disposition home or self-care (01) ==
LOC: ER 02:15
DX: R56.9 Unspecified convulsions (principal)
CPT/HCPCS: 36415; 80053; 85025; 99282; 99284; A4222

== ENCOUNTER 2018-01-19 19:45 | Emergency (ER) | payer MEDICAID ==
[2018-01-19 19:56] VITALS: BP 138/93; BMI 30.6
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
== END 2018-01-19 22:56 | disposition home or self-care (01) ==
LOC: ER 19:45
DX: M51.27 Other intervertebral disc displacement, lumbosacral region (principal); G62.9 Polyneuropathy, unspecified
CPT/HCPCS: 99281; 99282